=== PATIENT | female | born 2000 | race Caucasian/White ===

== ENCOUNTER 2020-02-20 02:07 | Emergency (ER) | payer OTHER ==
[2020-02-20] MEDS ORDERED: Lorazepam 2 MG/ML VIAL ONE (02:30)
== END 2020-02-20 02:43 | disposition home or self-care (01) ==
LOC: ERS 02:07
DX: F41.9 Anxiety disorder, unspecified (principal); F43.0 Acute stress reaction
CPT/HCPCS: 93005; 94760; 96372; J2060

== ENCOUNTER 2020-09-13 22:14 | Emergency (ER) | payer OTHER, SELFPAY ==
[2020-09-13] MEDS ORDERED: Lidocaine 1% w/Epinephrine 1:100K 20 ML VIAL ONE ×2 (23:31→23:32)
[2020-09-13] MEDS ORDERED: Boostrix 0.5 ML (Tdap) VIAL ONE (23:41)
[2020-09-14] MEDS ORDERED: Bacitracin 1 PK ONE (00:15)
== END 2020-09-14 00:23 | disposition home or self-care (01) ==
LOC: ERS 22:14
DX: S91.312A Laceration without foreign body, left foot, initial encounter (principal); W19.XXXA Unspecified fall, initial encounter
CPT/HCPCS: 12001; 90715